=== PATIENT | male | born 1950 ===

== ENCOUNTER 2020-09-04 06:00 | Day surgery (SDC) | payer OTHER | END 2020-09-04 10:40 | disposition home or self-care (01) | LOC: AMB-ENDOS 06:00 | PROVIDERS: ATTEND Surgery | DX: D12.8 Benign neoplasm of rectum (principal); Z20.822 Contact with and (suspected) exposure to COVID-19 ==

== ENCOUNTER 2020-11-13 08:12 | Outpatient (CLI) | payer OTHER | END 2020-11-13 09:48 | disposition home or self-care (01) | LOC: SONOGRAMA 08:12 | PROVIDERS: ATTEND Pathology Anatomic Pathology & Clinical Pathology | DX: D34 Benign neoplasm of thyroid gland (principal); E06.3 Autoimmune thyroiditis ==